=== PATIENT | female | born 1990 | race Native Hawaiian/Other Pacific Islander ===

== ENCOUNTER 2019-07-13 14:32 | Emergency (ER) | payer OTHER ==
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
[2019-07-13] MEDS ORDERED: HYDROcodone/ACETAMINOPHEN 5-325 MG TAB PO ONE (16:55)
[2019-07-13] MEDS ORDERED: MORPHINE 4 MG/1 ML INJ IM ONE (17:42)
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
[2019-07-13 20:02] VITALS: BP 130/83
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
== END 2019-07-13 19:26 | disposition home or self-care (01) ==
LOC: ED 14:32
DX: S52.371A Galeazzi's fracture of right radius, initial encounter for closed fracture (principal); E11.9 Type 2 diabetes mellitus without complications; F17.200 Nicotine dependence, unspecified, uncomplicated; Z79.899 Other long term (current) drug therapy; Z79.1 Long term (current) use of non-steroidal anti-inflammatories (NSAID); V89.2XXA Person injured in unspecified motor-vehicle accident, traffic, initial encounter; Y93.89 Activity, other specified; Y92.488 Other paved roadways as the place of occurrence of the external cause; Y99.8 Other external cause status
CPT/HCPCS: 29125; 73030; 73060; 73090; 73100; 96372; 99284; J2270

== ENCOUNTER 2021-04-29 07:44 | Emergency (ER) | payer SELFPAY ==
[2021-04-29 09:32] LABS: Basophils % (Auto) 0.3 % (0.0-1.8); Eosinophils # (Auto) 0.1 K/mm3 (0.0-0.4); Eosinophils % (Auto) 0.7 % (0.0-4.3); Hematocrit 41.8 % (30.3-42.9); Hemoglobin 14.4 gm/dl (10.1-14.3); Lymphocytes # (Auto) 2.7 K/mm3 (1.2-5.4); Mean Corpuscular HGB Conc 35 % (30-34); Mean Corpuscular Volume 88 fl (79-97); Monocytes # (Auto) 0.5 K/mm3 (0.0-0.8); Monocytes % (Auto) 6.3 % (0.0-7.3); Platelet Count 257 K/mm3 (140-440); Red Blood Count 4.76 M/mm3 (3.65-5.03); Red Cell Distribution Width 12.4 % (13.2-15.2)
--- NOTE | 2021-04-29 09:36 | Emergency Department Report ---
ED GI Bleed HPI - General Chief complaint: GI Bleed Stated complaint: RETAL BLEEDING Time Seen by Provider: 04/29/21 09:11 Source: patient Mode of arrival: Ambulatory Limitations: No Limitations - History of Present Illness Initial comments: Chief complaint: Rectal pain, bloody stool HPI: This is a 31-year-old female with history of diabetes mellitus who presents with bloody stools for 1 week and rectal pain. Patient denies constipation or diarrhea. She thinks that she may have a hemorrhoid. Patient denies fever, cough, chest pain, abdominal pain. Patient has blood on tissue paper. She has brown stool. MD complaint: blood on toilet paper -: Gradual, week(s) (1 week) Severity scale (0 -10): 0 Quality: other (Rectal tenderness) Consistency: constant Improves with: none Worsens with: none Associated Symptoms: other (Bloody stool) - Related Data Previous Rx's Medication Instructions Recorded Last Taken Type Acetaminophen/Codeine 1 tab PO Q6H PRN #10 tab 09/25/14 Unknown Rx [Acetaminophen-Codeine #3 TAB] DOXYCYCLINE Hyclate [Vibramycin 100 mg PO BID #28 capsule 09/25/14 Unknown Rx CAP] Fluconazole [Diflucan] 150 mg PO QDAY #2 tablet 09/25/14 Unknown Rx Ibuprofen [Motrin 800 MG tab] 800 mg PO TID #30 tablet 09/25/14 Unknown Rx metroNIDAZOLE [Flagyl] 500 mg PO BID #28 tablet 09/25/14 Unknown Rx oxyCODONE /ACETAMINOPHEN [Percocet 1 tab PO Q6HR PRN #15 tablet 07/13/19 Unknown Rx 5/325] Docusate Sodium [Colace] 100 mg PO BID 7 Days #14 capsule 04/29/21 Unknown Rx PE/Shark Liver Oil/Glyc/Wh.pet 1 applic RC BID 14 Days #1 04/29/21 Unknown Rx [Hemorrhoidal Cream] container Allergies Allergy/AdvReac Type Severity Reaction Status Date / Time No Known Allergies Allergy Verified 09/24/14 20:53 ED Review of Systems ROS: Stated complaint: RETAL BLEEDING Other details as noted in HPI Comment: All other systems reviewed and negative Constitutional: denies: fever, malaise Respiratory: denies: cough, shortness of breath Gastrointestinal: abdominal pain, hematochezia. denies: nausea, vomiting, diarrhea, constipation, hematemesis, melena Musculoskeletal: denies: back pain ED Past Medical Hx - Past Medical History Previous Medical History?: Yes Hx Diabetes: Yes Additional medical history: non compliant with checking BS - Surgical History Past Surgical History?: No - Social History Smoking Status: Current Every Day Smoker Substance Use Type: Alcohol - Medications Home Medications: Home Medications Medication Instructions Recorded Confirmed Last Taken Type Acetaminophen/Codeine 1 tab PO Q6H PRN #10 tab 09/25/14 Unknown Rx [Acetaminophen-Codeine #3 TAB] DOXYCYCLINE Hyclate [Vibramycin 100 mg PO BID #28 capsule 09/25/14 Unknown Rx CAP] Fluconazole [Diflucan] 150 mg PO QDAY #2 tablet 09/25/14 Unknown Rx Ibuprofen [Motrin 800 MG tab] 800 mg PO TID #30 tablet 09/25/14 Unknown Rx metroNIDAZOLE [Flagyl] 500 mg PO BID #28 tablet 09/25/14 Unknown Rx oxyCODONE /ACETAMINOPHEN [Percocet 1 tab PO Q6HR PRN #15 tablet 07/13/19 Unknown Rx 5/325] Docusate Sodium [Colace] 100 mg PO BID 7 Days #14 capsule 04/29/21 Unknown Rx PE/Shark Liver Oil/Glyc/Wh.pet 1 applic RC BID 14 Days #1 04/29/21 Unknown Rx [Hemorrhoidal Cream] container ED Physical Exam - General Limitations: No Limitations General appearance: alert, in no apparent distress - Head Head exam: Present: atraumatic, normocephalic - Eye Eye exam: Present: normal appearance - ENT ENT exam: Present: mucous membranes moist - Neck Neck exam: Present: normal inspection, full ROM - Respiratory Respiratory exam: Present: normal lung sounds bilaterally. Absent: respiratory distress, wheezes, rales, rhonchi - Cardiovascular Cardiovascular Exam: Present: regular rate, normal rhythm, normal heart sounds. Absent: systolic murmur, diastolic murmur, rubs, gallop - GI/Abdominal GI/Abdominal exam: Present: soft, normal bowel sounds. Absent: distended, tenderness, guarding, rebound - Rectal Rectal exam: Present: hemorrhoids (Several nonthrombosed hemorrhoids), other (Br own stool no gross blood) - Extremities Exam Extremities exam: Present: normal inspection - Neurological Exam Neurological exam: Present: alert, oriented X3 - Psychiatric Psychiatric exam: Present: normal affect, normal mood - Skin Skin exam: Present: warm, dry, intact, normal color. Absent: rash ED Course Vital Signs 04/29/21 04/29/21 08:00 09:04 Temperature 98.5 F 98.9 F Pulse Rate 114 H 99 H Respiratory 20 19 Rate Blood Pressure 148/96 Blood Pressure 143/86 [Left] O2 Sat by Pulse 98 98 Oximetry ED Medical Decision Making - Medical Decision Making Rectal bleeding due to external hemorrhoids: Brown stool exam, Patient prescribed hemorrhoidal ointment and Colace. Referred to general surgeon. Critical care attestation.: If time is entered above; I have spent that time in minutes in the direct care of this critically ill patient, excluding procedure time. ED Disposition Clinical Impression: Hemorrhoids, Rectal bleeding Disposition: DC- TO HOME OR SELFCARE Is pt being admited?: No Does the pt Need Aspirin: No Condition: Stable Instructions: Rectal Bleeding, Hemorrhoids, [id number] Prescriptions: Docusate Sodium [Colace] 100 mg PO BID 7 Days #14 capsule PE/Shark Liver Oil/Glyc/Wh.pet [Hemorrhoidal Cream] 1 applic RC BID 14 Days #1 container Referrals: HEENA SMITH DO [Staff Physician] - 3-5 Days
[2021-04-29 09:56] LABS: Blood Urea Nitrogen 12 mg/dL (7-17); Calcium 9.2 mg/dL (8.4-10.2); Hemolysis Index 5
[2021-04-29 09:57] LABS: BUN/Creatinine Ratio 30
[2021-04-29 10:06] VITALS: BP 132/81
== END 2021-04-29 10:17 | disposition home or self-care (01) ==
LOC: ED 07:44
DX: K64.9 Unspecified hemorrhoids (principal); E11.9 Type 2 diabetes mellitus without complications; F17.200 Nicotine dependence, unspecified, uncomplicated; Z98.890 Other specified postprocedural states; Z79.899 Other long term (current) drug therapy
CPT/HCPCS: 36415; 80048; 85025; 99283

== ENCOUNTER 2021-06-03 10:20 | Emergency (ER) | payer OTHER ==
[2021-06-03 11:24] VITALS: BP 125/79
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
== END 2021-06-03 17:31 | disposition home or self-care (01) ==
LOC: ED 10:20
DX: S13.4XXA Sprain of ligaments of cervical spine, initial encounter (principal); S39.012A Strain of muscle, fascia and tendon of lower back, initial encounter; E11.9 Type 2 diabetes mellitus without complications; F17.200 Nicotine dependence, unspecified, uncomplicated; Z79.899 Other long term (current) drug therapy; V49.49XA Driver injured in collision with other motor vehicles in traffic accident, initial encounter; Y92.410 Unspecified street and highway as the place of occurrence of the external cause; Y93.89 Activity, other specified; Y99.8 Other external cause status
CPT/HCPCS: 72040; 72100